=== PATIENT | female | born 1975 | race Caucasian/White ===

== ENCOUNTER 2018-05-19 07:35 | Emergency (ER) | payer MEDICAID, OTHER ==
[~2018-05-19] VITALS: Ht 165.1 cm; Wt 100.0 kg
[2018-05-19] MEDS ORDERED: SODIUM CHLORIDE 0.9% 1,000 ML IV ONE (08:01)
[2018-05-19] MEDS ORDERED: ONDANSETRON HCL 4MG/2ML INJ IV STA (08:01)
[2018-05-19 09:11] LABS: BASOPHILS % 0.6 % (0.0-2.0); EOSINOPHILS % 1.2 % (0.0-5.0); HEMATOCRIT. 37.9 % (36.0-48.0); HEMOGLOBIN. 12.9 g/dL (12.0-16.0); LYMPHOCYTES % 15.8 % (20.0-50.0); MEAN CORPUSCULAR HEMOGLOBIN 31.2 pg (28.0-32.0); MEAN CORPUSCULAR VOLUME 91.4 fL (81.0-99.0); MEAN PLATELET VOLUME 9.9 fl (7.4-10.4); MONOCYTES % 4.9 % (2.0-8.0); NEUTROPHILS % 77.5 % (40.0-76.0); PLATELET 194 x1000/uL (130-400); RED BLOOD CELL COUNT 4.15 mill/uL (4.2-5.4); RED CELL DISTRIBUTION WIDTH 14.3 % (11.6-14.6)
[2018-05-19] MEDS ORDERED: KETOROLAC 15MG/ML VIAL IV ONE (09:15)
[2018-05-19 09:17] LABS: CHLORIDE 106 mEq/L (98-107)
[2018-05-19 10:04] LABS: CLARITY URINE TURBID (CLEAR); KETONES URINE NEGATIVE (NEGATIVE); LEUKOCYTE ESTERASE URINE 2+ (NEGATIVE); NITRITE URINE POSITIVE (NEGATIVE); OCCULT BLOOD URINE 2+ (NEGATIVE); PROTEIN URINE 1+ (NEGATIVE); SPECIFIC GRAVITY URINE 1.026 (1.005-1.030); UROBILINOGEN URINE 0.2 E.U./dL (0.2-1.0)
[2018-05-19 10:05] LABS: COLOR URINE YELLOW (YELLOW)
[2018-05-19] MEDS ORDERED: CEFTRIAXONE 1 G PREMIX 50 ML IV ONE (10:15)
[2018-05-19] MEDS ORDERED: ACETAMINOPHEN 500MG TABLET PO ONE (10:15)
[2018-05-19] MEDS ORDERED: METRONIDAZOLE 500MG TABLET PO ONE (11:30)
[2018-05-19 12:56] VITALS: BP 121/62
== END 2018-05-19 13:03 | disposition home or self-care (01) ==
LOC: ER 07:46
DX: A59.9 Trichomoniasis, unspecified (principal); N12 Tubulo-interstitial nephritis, not specified as acute or chronic; F41.9 Anxiety disorder, unspecified; R11.2 Nausea with vomiting, unspecified; M54.5 Low back pain; Z88.6 Allergy status to analgesic agent; Z87.440 Personal history of urinary (tract) infections
CPT/HCPCS: 36415; 80053; 81003; 81025; 83690; 85025; 87077; 87086; 87186; 96365; 96375; 99284; J0696; J1885; J7030; Z7610

== ENCOUNTER 2021-02-04 21:28 | Emergency (ER) | payer MEDICAID, OTHER ==
[~2021-02-04] VITALS: Ht 180.3 cm; Wt 152.0 kg
[2021-02-04] MEDS ORDERED: PROCHLORPERAZINE 10MG/2ML VIAL IV ONE (22:00)
[2021-02-04] MEDS ORDERED: ACETAMINOPHEN 325MG TABLET PO ONE (22:00)
[2021-02-04 22:04] LABS: BASOPHILS % 0.5 % (0.0-2.0); EOSINOPHILS % 2.3 % (0.0-5.0); HEMOGLOBIN. 12.5 g/dL (12.0-16.0); LYMPHOCYTES % 24.4 % (20.0-50.0); MEAN CORPUSCULAR HEMOGLOBIN 32.1 pg (28.0-32.0); MEAN CORPUSCULAR VOLUME 92.6 fL (81.0-99.0); MEAN PLATELET VOLUME 8.8 fl (7.4-10.4); NEUTROPHILS % 65.8 % (40.0-76.0); PLATELET 175 x1000/uL (130-400); RED BLOOD CELL COUNT 3.89 mill/uL (4.2-5.4); RED CELL DISTRIBUTION WIDTH 13.9 % (11.6-14.6)
[2021-02-04 22:11] LABS: CHLORIDE 110 mEq/L (98-107)
[2021-02-04 22:14] LABS: ETHANOL BLOOD < 10 mg/dL
[2021-02-04 22:16] LABS: HCG SCREEN NEGATIVE
[2021-02-04 22:58] LABS: PROTHROMBIN TIME 10.4 sec (9.6-11.0)
[2021-02-04] MEDS ORDERED: KETOROLAC 15MG/ML VIAL IV ONE (23:00)
[2021-02-04] MEDS ORDERED: DIPHENHYDRAMINE 50MG/ML VIAL IV ONE (23:00)
[2021-02-05 01:29] VITALS: BP 125/81
== END 2021-02-05 01:31 | disposition home or self-care (01) ==
LOC: ER 21:28
DX: R51.9 Headache, unspecified (principal); R07.89 Other chest pain; I69.998 Other sequelae following unspecified cerebrovascular disease; H53.8 Other visual disturbances; I49.9 Cardiac arrhythmia, unspecified; E04.9 Nontoxic goiter, unspecified
CPT/HCPCS: 36415; 70450; 71045; 80053; 80320; 83880; 84484; 84703; 85025; 85610; 93005; 96374; 96375; 99285; J0780; J1200; J1885; G0480